=== PATIENT | male | born 1950 | race Caucasian/White ===

== ENCOUNTER → 2018-03-28 | Outpatient (CLI) | payer MEDICARE | END | disposition home or self-care (01) | LOC: RADMRIMAIN 08:11 | PROVIDERS: ATTEND Family Medicine | DX: Z53.9 Procedure and treatment not carried out, unspecified reason (principal) ==

== ENCOUNTER → 2018-03-30 | Outpatient (CLI) | payer MEDICARE | END | disposition home or self-care (01) | LOC: LABWHC1 16:32 | PROVIDERS: ATTEND Family Medicine | DX: Z13.9 Encounter for screening, unspecified (principal) | CPT/HCPCS: 36415; 82565 ==

== ENCOUNTER → 2018-04-02 | Outpatient (CLI) | payer MEDICARE ==
--- NOTE | 2018-04-02 19:09 | MR ---
EXAMINATION TYPE: MR cervical spine wo/w con DATE OF EXAM: 04/02/2018 COMPARISON: [id number] HISTORY: Neck pain TECHNIQUE: Multiplanar, multisequence images of the cervical spine were acquired utilizing 10 mL intravenous Baltazar avist gadolinium contrast. Diffusion weighted imaging was performed. FINDINGS: The cervical spine vertebral bodies maintain normal vertebral body height. There is mild re trolisthesis of C4 and C5 and to lesser degree of C5 on C6. No anterolisthesis. Bone marrow signal is diffusely patchy without focal conspicuous T1 hypointense/T2 hypointense lesion. There is slight enh ancement in the bone marrow at C6 and C7. In comparison to the prior exam of 2014 this patchy bone ma rrow signal appears similar. C2-C3: There is facet arthropathy and uncovertebral hypertrophy resulting in mild left-sided spinal c anal stenosis. Broad-based disc bulge is seen without right neuroforaminal narrowing or central canal stenosis. C3-C4: Uncovertebral hypertrophy and facet arthropathy are seen resulting in moderate left neural for aminal narrowing. Spinal canal and neural foramen are patent despite a small central disc osteophyte complex. C4-C5: There is a small right paracentral disc herniation as seen on the prior exam effacing the vent ral subarachnoid space and creating mild compression upon the cervical cord without abnormal spinal c ord signal. There is mild resultant spinal canal stenosis. Uncovertebral hypertrophy and facet arthro carlos result in mild left neural foraminal narrowing. Right neuroforamen is patent. Findings are pham lar in degree to the prior exam. C5-C6: A broad-based disc bulge, uncovertebral hypertrophy and facet arthropathy creates moderate lef t and mild right neural foraminal narrowing. There is narrowing of the ventral subarachnoid space wit hout spinal canal stenosis. C6-C7: Right eccentric broad-based disc bulge extends into the neural foramen and in combination with facet arthropathy and ligamentum flavum buckling create moderate right neural foraminal narrowing. L eft neural foramen and spinal canal are patent. C7-T1: No significant disc disease, spinal canal stenosis or neural foraminal narrowing. No suspicious epidural fluid collection or abnormal focal enhancement. Visualized portions of posteri or fossa are grossly unremarkable. IMPRESSION: 1. Similar right paracentral disc herniation at C4-C5 creating mild spinal canal stenosis in comparis on to the exam of 2014. 2. Right eccentric broad-based disc bulge extending into the neural foramen at C6-C7 creates moderate right neural foraminal narrowing. 3. Multilevel moderate degenerative disc disease of the cervical spine creating variable degrees of n eural foraminal narrowing as described above. 4. Overall patchy bone marrow signal with decreased intensity more focally within the C6 and C7 verte bral bodies demonstrating minimal enhancement. Findings are similar to the exam of 2014 without focal suspicious lesion. Correlate with CBC to assess for anemia or myeloproliferative disorders. If there is further concern nuclear medicine bone scan could be performed to evaluate for focal radiotracer u ptake. 5. Mild retrolisthesis of C4 and C5 and C5 on C6, likely on a degenerative basis.
== END | disposition home or self-care (01) ==
LOC: RADMRIMAIN 14:50
PROVIDERS: ATTEND Family Medicine
DX: M48.02 Spinal stenosis, cervical region (principal); M99.71 Connective tissue and disc stenosis of intervertebral foramina of cervical region; M50.221 Other cervical disc displacement at C4-C5 level; M50.30 Other cervical disc degeneration, unspecified cervical region; M43.12 Spondylolisthesis, cervical region
CPT/HCPCS: 72156; A9581

== ENCOUNTER 2018-04-21 17:36 | Emergency (ER) | payer MEDICARE ==
[2018-04-21 17:51] VITALS: BP 116/66; PULSE 83; RESP 16; TEMP 98.4
--- NOTE | 2018-04-21 18:08 | ED ---
Lower Extremity Injury HPI - General Source: patient, family, RN notes reviewed Mode of arrival: wheelchair Limitations: no limitations <Kelly Valentino - Last Filed: 04/21/18 18:33> <Otis Pérez - Last Filed: 04/25/18 01:13> - General Chief Complaint: Extremity Injury, Lower Stated Complaint: fell getting off boat Time Seen by Provider: 04/21/18 17:53 - History of Present Illness Initial Comments: This is a 67-year-old male who presents to the emergency department with chief complaint of right buttock injury. Patient states that he was in a fishing tournament today. He states that when he went to dock his boat, he stepped off and had 1 foot on the dock and 1 foot on his boat. He states that his foot on the dock slipped and he ended up having a "splits and fall." Patient states that he then fell backward and landed on his right buttock. Patient complains of pain in the right buttock. He denies any hip pain. He states that pain is made worse with walking and flexion of the right knee. Denies any other injuries or trauma. Denies head, neck or back pain. He states that he is unable to ambulate on the right leg due to pain. Denies recent fevers or chills , chest pain shortness of breath, abdominal pain, nausea or vomiting. (Kelly Valentino) - Related Data Previous Rx's Medication Instructions Recorded Ibuprofen 600 mg PO Q6HR #20 tablet 04/21/18 Allergies Allergy/AdvReac Type Severity Reaction Status Date / Time adhesive Allergy Rash/Hives Verified 04/21/18 17:52 Review of Systems ROS Other: All systems not noted in ROS Statement are negative. <Kelly Valentino - Last Filed: 04/21/18 18:33> ROS Other: All systems not noted in ROS Statement are negative. <Otis Pérez - Last Filed: 04/25/18 01:13> ROS Statement: Those systems with pertinent positive or pertinent negative responses have been documented in the HPI. Past Medical History Past Medical History: Diabetes Mellitus, Hyperlipidemia, Hypertension Additional Past Medical History / Comment(s): hearing impaired History of Any Multi-Drug Resistant Organisms: None Reported Past Surgical History: Back Surgery, Hernia Repair, Orthopedic Surgery Past Psychological History: No Psychological Hx Reported Smoking Status: Never smoker Past Alcohol Use History: Occasional Past Drug Use History: None Reported <Randell Valentinogabi Dooley - Last Filed: 04/21/18 18:33> General Exam Limitations: no limitations <Kelly Valentino - Last Filed: 04/21/18 18:33> <Otis Pérez - Last Filed: 04/25/18 01:13> - General Exam Comments Initial Comments: General: Awake and alert, well-developed; in no apparent distress. Patient went completely an ED stretcher with his at bedside. HEENT: Head atraumatic, normocephalic. Pupils are equal, round and reactive to light. Extraocular movements intact. Oropharynx moist without erythema or exudate. Neck: Supple. Normal ROM. Cardiovascular: Regular rate and rhythm. No murmurs, rubs or gallops. Chest symmetrical. Respiratory: Lungs clear to auscultation bilaterally. No wheezes, rales or rhonchi. Normal respiratory effort with no use of accessory muscles. Musculoskeletal: Normal range of motion of the right hip. No tenderness of the greater trochanter or superior iliac crest. There is tenderness over the ischial tuberosity on the right side. Patient has pain and difficulty flexing the right knee. Sensation is intact. Pedal pulses are 2+ equal and palpable bilaterally. Skin: [place], warm and dry without rashes or lesions. Neurological: Alert and oriented x3. CN II-XII grossly intact. Speech is fluent and answers are appropriate. No focal neuro deficits. Psychiatric: Normal mood and affect. No overt signs of depression or anxiety noted. (Kelly Valentino) Course <Kelly Valentino - Last Filed: 04/21/18 18:33> <Otis Pérez - Last Filed: 04/25/18 01:13> Vital Signs 04/21/18 17:46 Temperature 98.4 F Pulse Rate 83 Respiratory 16 Rate Blood Pressure 116/66 O2 Sat by Pulse 96 Oximetry - Reevaluation(s) Reevaluation #1: 04/21/18 18:44 PA supervision: I did personally do a states evaluation the patient did discuss the findings with him. She'll be discharged on appropriate anti-inflammatories he is advised to follow-up with his doctor and return when necessary we did discuss the x-ray findings. (Otis Pérez) Medical Decision Making - Radiology Data Radiology results: report reviewed, image reviewed <Kelly Valentino - Last Filed: 04/21/18 18:33> <Otis Pérez - Last Filed: 04/25/18 01:13> - Medical Decision Making This is a 67-year-old male who presents to the emergency department with chief complaint of right buttock injury. Patient was docking his boat earlier today and had 1 foot on the boat and the other on the dock. The foot on the dock slipped and patient ended up doing the splits and following backwards onto his right buttock. Patient does have normal range of motion of the right hip. There is tenderness over the ischial tuberosity on the right side. Patient has difficulty and pain is elicited with flexion of the right knee. Patient has been resting comfortably on the ED stretcher. X-ray of the pelvis was obtained and revealed no acute fractures. It did demonstrate sclerosis at the pubis. Findings were discussed with patient and his at bedside. Recommended following up with his primary care provider regarding these findings. Patient is in agreement. He will be started on a short course of anti-inflammatories to help with muscle strain. Recommended rest and ice as well. Patient is in agreement with plan and voices understanding. He is in no acute distress at this time and will be discharged home. All questions answered. (Kelly Valentino) - Radiology Data X-ray AP pelvis impression: No acute fracture. Sclerosis involving the pubic symphysis greater on the right is a nonspecific finding. Metastatic disease would be the differential diagnosis correlate clinically. As read by Dr. Tomlinson. (Kelly Valentino) Disposition Is patient prescribed a controlled substance at d/c from ED?: No Time of Disposition: 18:37 <Kelly Valentino - Last Filed: 04/21/18 18:33> Is patient prescribed a controlled substance at d/c from ED?: No <Otis Pérez - Last Filed: 04/25/18 01:13> Clinical Impression: Hamstring strain Disposition: HOME SELF-CARE Condition: Good Instructions: Hamstring Injury (ED) Additional Instructions: Please take medications as prescribed. Please follow up with your primary care provider to address x-ray findings that we discussed. Please follow up with primary care provider within 1-2 days. Return to emergency department if symptoms should worsen or any concerns arise. Prescriptions: Ibuprofen 600 mg PO Q6HR #20 tablet Referrals: Tin Rivas DO [Primary Care Provider] - 1-2 days
--- NOTE | 2018-04-21 18:26 | XR ---
EXAMINATION TYPE: XR pelvis AP view DATE OF EXAM: 04/21/2018 COMPARISON: NONE HISTORY: Pain The osseous structures are intact and the joint spaces are preserved. No acute fracture is seen. Vi sualized bowel gas pattern is nonspecific. Sclerosis of the pubic symphysis noted. Calcifications in the pelvis seen. IMPRESSION: 1. No acute fracture. Sclerosis involving the pubic symphysis greater on the right is a nonspecific f inding. Metastatic disease would be the differential diagnosis correlate clinically.
== END 2018-04-21 18:48 | disposition home or self-care (01) ==
LOC: EC 17:36
DX: S76.911A Strain of unspecified muscles, fascia and tendons at thigh level, right thigh, initial encounter (principal); Z91.048 Other nonmedicinal substance allergy status; W01.0XXA Fall on same level from slipping, tripping and stumbling without subsequent striking against object, initial encounter; Y92.62 Dock or shipyard as the place of occurrence of the external cause; Y93.89 Activity, other specified
CPT/HCPCS: 72170; 99283

== ENCOUNTER → 2018-05-15 | Outpatient (CLI) | payer MEDICARE ==
--- NOTE | 2018-05-15 11:52 | CT ---
EXAMINATION TYPE: CT abdomen pelvis wo/w con DATE OF EXAM: 05/15/2018 COMPARISON: NONE HISTORY: Low back pain. CT DLP: 2639 mGycm Automated exposure control for dose reduction was used. CONTRAST: CT scan of the abdomen pelvis is performed without and with IV Contrast, patient injected with 100 mL of Isovue 300. FINDINGS- LUNG BASES- No significant abnormality is appreciated. The heart is enlarged. LIVER/GB- No gross abnormality is appreciated. PANCREAS- No gross abnormality is seen. SPLEEN-splenic granuloma noted.. ADRENALS- No gross abnormality is seen. KIDNEYS/BLADDER- no hydronephrosis nephrolithiasis or renal mass. BOWEL-nonspecific bowel gas pattern. Large hiatal hernia.. LYMPH NODES- No greater than 1cm abdominal or pelvic lymph nodes are appreciated. OSSEOUS STRUCTURES-multilevel degenerative change. Endplate deformity of L1 appears chronic. There is an anterolisthesis of L4 on L5 with significant facet arthropathy. Multilevel facet arthropathy seen . Disc bulging at L4-L5 noted. Sclerosis involving the pars of L4 suggests the stress defects. Disc bulging and facet arthropathy contribute to bilateral foraminal encroachment and probable canal sten osis. There is sclerosis involving the right pubic symphysis which may been the basis of osteitis pubis con densans. Correlate clinically to exclude history of malignancy. Is arthropathy of the joints with a small cystic geode near the inferior margin of the left fibula. OTHER- atherosclerotic change of the aorta with no evidence of aneurysm. Tiny periumbilical hernia n oted. IMPRESSION- 1. Multilevel degenerative disc disease with grade 1 anterolisthesis L4 on L5 and multilevel facet ar thropathy. Exam is nondiagnostic for assessment of osteomyelitis or discitis. MRI is recommended if t here is concern for osteomyelitis or discitis. 2. Nonspecific sclerosis involving the right pubic symphysis may be post arthritic. Correlate clinica lly. 3. Large hiatal hernia. 4. Cardiomegaly.
== END | disposition home or self-care (01) ==
LOC: RADCTMAIN 09:15
PROVIDERS: ATTEND Family Medicine
DX: K44.9 Diaphragmatic hernia without obstruction or gangrene (principal)
CPT/HCPCS: 82565; 84520; 74178; 36415; Q9967

== ENCOUNTER → 2018-06-27 | Outpatient (CLI) | payer MEDICARE ==
--- NOTE | 2018-06-27 11:57 | XR ---
EXAMINATION TYPE: XR chest 2V DATE OF EXAM: 06/27/2018 COMPARISON: NONE TECHNIQUE: PA and lateral views submitted. HISTORY: Osteomyelitis FINDINGS: The lungs are clear and there is no pneumothorax, pleural effusion, or focal pneumonia. Nodular pro minence involving the right upper mediastinum likely related to a right-sided aortic arch. Hiatal her sid also suggested. Hypertrophic and degenerative change of the spine. IMPRESSION: 1. No acute process. Correlate for right-sided aortic arch. This could be confirmed with CT scan of t he chest. 2. Correlate for hiatal hernia.
== END | disposition home or self-care (01) ==
LOC: RADXRMAIN 11:36
PROVIDERS: ATTEND Family Medicine
DX: M86.9 Osteomyelitis, unspecified (principal)
CPT/HCPCS: 71046

== ENCOUNTER → 2018-11-22 | Outpatient (CLI) | payer MEDICARE ==
--- NOTE | 2018-11-22 13:51 | CT ---
EXAMINATION TYPE: CT brain wo con DATE OF EXAM: 11/22/2018 COMPARISON: None HISTORY: fall, trauma and pain CT DLP: 1169 mGycm Automated exposure control for dose reduction was used. Helical imaging through the brain FINDINGS: Cerebellar calcifications are symmetric and benign in appearance. There is no hemorrhage or hydroceph alus. Basal ganglia calcifications also noted. Calvarium is intact. Paranasal sinuses and mastoid air cells are well aerated. Small cephalohematoma noted at the posterior parietal location extending to the occipital region. There are cerebral vascular calcifications. Orbits show symmetric appearance. S clerotic focus within the frontal calvarium shows a nonaggressive appearance, there is no cortical de struction, abnormality measures 16 x 23 x 8 mm IMPRESSION: NO ACUTE ABNORMALITIES EVIDENT. SCLEROTIC FOCUS FRONTAL CALVARIUM IS NONAGGRESSIVE IN APPEARANCE, CON CERTIFIED FLEX ENDOSCOPE REPROCESSOR BONE SCAN. CEPHALOHEMATOMA.
== END | disposition home or self-care (01) ==
LOC: RADCTMAIN 13:00
PROVIDERS: ATTEND Physician Assistant
DX: S00.93XA Contusion of unspecified part of head, initial encounter (principal); G37.9 Demyelinating disease of central nervous system, unspecified
CPT/HCPCS: 70450

== ENCOUNTER → 2018-12-04 | Outpatient (CLI) | payer MEDICARE ==
--- NOTE | 2018-12-04 15:21 | NM ---
EXAMINATION TYPE: NM bone/joint limited DATE OF EXAM: 12/04/2018 COMPARISON: CT brain 11/22/2017 HISTORY: Abnormal PET/CT TECHNIQUE: After the intravenous administration of 25.1 mCi Tc 99m MDP. Images acquired 3 hours pos t injection. Multiple views of skull are submitted. There is no abnormal uptake within the visualized osseous structures to suggest acute process. Mild u ptake in the shoulders compatible with arthropathy. IMPRESSION: No acute osseous abnormality. No abnormal uptake seen within the skull to suggest metasta sis.
== END | disposition home or self-care (01) ==
LOC: RADNMMAIN 09:46
PROVIDERS: ATTEND Family Medicine
DX: R93.0 Abnormal findings on diagnostic imaging of skull and head, not elsewhere classified (principal)
CPT/HCPCS: 78300; A9503

== ENCOUNTER → 2021-02-25 | Outpatient (CLI) | payer MEDICARE ==
--- NOTE | 2021-02-25 13:43 | CONS ---
CONSULTATION DATE OF SERVICE: 02/25/2021 This 70-year-old gentleman has been evaluated in the Sleep Center for obstructive sleep apnea-hypopnea syndrome. HISTORY OF PRESENT ILLNESS/SLEEP-WAKE EVALUATION: Patient has history of obstructive sleep apnea since 2006 and since that time he is on treatment with BiPAP. He continued to use equipment every night but developed multiple awakenings from sleep and snoring while using his equipment. His present sleep schedule from 10:30 p.m. until 7 a.m. Usually no problems with falling asleep. No TV in bedroom. He sleeps in the stomach position. Presently wearing BiPAP, he wakes up from sleep up to 5 times with several episodes of nocturia. He tosses and turns. He has dry mouth, restless leg symptoms, positive history of sleep talking. [place] Sleepiness Scale is today is significantly increased to 14. PAST MEDICAL HISTORY: Positive for hypertension, diabetes mellitus, hyperlipidemia. PAST SURGICAL HISTORY: Right shoulder repair 2009, right elbow surgery 2017, left elbow surgery in 2007, cysts removed from spinal cord 2007, defect correction in 194. MEDICATIONS: Metformin 1000 mg twice a day, AndroGel 40.5 mg once a day, lisinopril 10 mg once a day, Lantus 25 units at bedtime, Trulicity 0.75 mg once a week, tamsulosin 0.4 mg once daily, lovastatin 40 mg once daily, aspirin 81 mg once daily, calcium, iron, magnesium supplements. REVIEW OF SYSTEMS: Multiple awakenings from sleep, sleepiness during the day. FAMILY HISTORY: Heart problems, angina, stroke. PHYSICAL EXAMINATION: GENERAL: gentleman without distress. VITAL SIGNS: BP 141/81, HR 65, RR 15, height 5 feet 10 inches, weight 183.8, BMI 26.2, temperature 98.7, oxygen saturation at room air 95%. HEENT: PERRLA, EOMI. Oropharynx low position of soft palate. NECK: Supple, no JVD. Thyroid is not palpable. LUNGS: Clear to percussion and to auscultation. Good air exchange. No wheezing or rhonchi. HEART: S1, S2 regular. No murmurs, gallops, or rubs. ABDOMEN: Soft and nontender. Bowel sounds are present. No organomegaly appreciated. EXTREMITIES: No clubbing or cyanosis. TELEPHOTO ENGINEER: Awake, alert, and oriented X3. Cranial nerves 2 to 7 intact. There is no fasciculation or atrophy. noted. No focal deficits observed. IMPRESSION: 1. History of obstructive sleep apnea for 20 years. By the record of previous dictation of another physician, he had obstructive sleep apnea with apnea-hypopnea index 23 events per hour at that time. The patient is on treatment with BiPAP. Continue to use BiPAP equipment every night, but has multiple awakenings from sleep, sleepiness during the day and checking his BiPAP unit indicated good compliance with treatment, 100% of the time. BiPAP pressure 12/6 cm of water. 2. Hypertension. 3. Diabetes mellitus. 4. Hypothyroidism. 5. Hyperlipidemia. 6. History of surgery after 1948. 7. Status post cyst removed from spinal cord in 2007. 8. Status post hernia repair in 1979. 9. Status post right shoulder repair, 2009. 10.Status post right elbow surgery 2017. 11.Status post left elbow and wrist 2019. PLAN: 1. CPAP if necessary BiPAP titration for re-evaluation of effective pressure at the present time for correction of respiratory abnormalities during sleep. 2. Sleep hygiene with regular time in bed for 7-1/2 to 8 hours. 3. Precautions related to driving. No driving if feeling any sleepiness. 4. Prescription for new PAP therapy unit after titration with all necessary supplies. Thank you very much for allowing me to participate in management of your patient. Sincerely, Brayden Finn MD, PhD, FAASM Diplomat of [employer] Footwear Sales Leader of [facility] [place] MMODL / FADYN: [id number] /
== END ==
LOC: SLEEP 11:24
PROVIDERS: ATTEND Internal Medicine
DX: G47.33 Obstructive sleep apnea (adult) (pediatric) (principal); I10 Essential (primary) hypertension; E11.9 Type 2 diabetes mellitus without complications; E03.9 Hypothyroidism, unspecified; E78.5 Hyperlipidemia, unspecified; Z79.4 Long term (current) use of insulin; Z79.899 Other long term (current) drug therapy; Z98.890 Other specified postprocedural states; Z99.89 Dependence on other enabling machines and devices
CPT/HCPCS: 99211

== ENCOUNTER → 2021-07-28 | Outpatient (CLI) | payer MEDICARE ==
--- NOTE | 2021-07-28 11:17 | SFUN ---
SLEEP CENTER FOLLOW UP NOTE DATE OF SERVICE: 07/28/2021 This 70-year-old gentleman has been followed in Sleep Center for treatment of obstructive sleep apnea-hypopnea syndrome. Recently the patient had CPAP titration. After that he received a new CPAP unit and today is his first visit after he was started on treatment with the new CPAP machine. The patient likes his CPAP unit, does not have any problems with usage of equipment. [place] Sleepiness Scale today is 4, which is totally normal. I checked his CPAP unit. Range of the pressure is 7-10, average 9.5 cm of water, usage /30 nights, and /30 nights for more than 4 hours, average 7.8 hours per night. Leak is 25 L/minute, which is borderline. Apnea-hypopnea index is 1.4, which is in normal range. I discussed with the patient details about the position of the machine during the night, results of his sleep study, necessity to make the water chamber dry after usage in the morning. MEDICATIONS: 1. Metformin 1000 mg twice a day. 2. AndroGel 40.5 mg once a day. 3. Lisinopril 10 mg once a day. 4. Lantus 25 units at bedtime. 5. Trulicity 0.75 mg once a week. 6. Tamsulosin 0.4 mg once a day. 7. Lovastatin 40 mg once a day. 8. Aspirin 81 mg once daily. 9. Calcium, iron and magnesium supplements. PHYSICAL EXAMINATION: GENERAL APPEARANCE: Pleasant patient in no distress. VITAL SIGNS: BP 142/80, HR 76, RR 14, weight 177, temperature 97.6, oxygen saturation at room air 95%. HEENT: PERRLA, EOMI, evaluation of oropharynx showed tongue protrudes midline. Low position of soft palate. NECK: Supple, no JVD. Thyroid is not palpable. LUNGS: Clear to percussion and to auscultation. Good air exchange. No wheezing or rhonchi. HEART: S1, S2 regular. No murmurs, gallops, or rubs. ABDOMEN: Soft and nontender. Bowel sounds are present. No organomegaly appreciated. EXTREMITIES: No clubbing or cyanosis. RFID MANAGER: Awake, alert, and oriented X3. Cranial nerves 2 to 7 intact. There is no fasciculation or atrophy. noted. No focal deficits observed. IMPRESSION: 1. Obstructive sleep apnea-hypopnea syndrome, under full control with CPAP. Patient demonstrated great compliance with treatment, benefitting from treatment. 2. Hypertension. 3. Diabetes mellitus. 4. Hypothyroidism. 5. Hyperlipidemia. 6. Status post surgery after in 1949. 7. Status post cyst removed from spinal cord in 2007. 8. Status post hernia repair in 1979. 9. Status post right shoulder repair in 2009. 10.Status post right elbow surgery in 2017. 11.Status post left elbow and wrist surgery in 2019. PLAN: 1. Change air filter. It looks like it needs to be replaced. 2. Patient will continue to use PAP equipment every night for the whole night. 3. Sleep hygiene with regular time in bed for at least 7-1/2 to 8 hours. 4. Precautions related to driving. No driving if feeling sleepiness. 5. I will maintain all necessary prescription for PAP supplies including mask, tube, filters. 6. Watching weight. 7. Follow-up visit in 6 months or earlier if patient has any problems. Thank you very much for allowing me to participate in the management of your patient. Sincerely, Brayden Finn MD, PhD, FAASM Diplomat of [employer] Sleep Medicine Board of [employer] Licensed Surveyor of [facility] [place] MMODL / IJN: [id number] /
== END | disposition home or self-care (01) ==
LOC: SLEEP 09:59
PROVIDERS: ATTEND Internal Medicine
DX: G47.33 Obstructive sleep apnea (adult) (pediatric) (principal); I10 Essential (primary) hypertension; E11.9 Type 2 diabetes mellitus without complications; E03.9 Hypothyroidism, unspecified; E78.5 Hyperlipidemia, unspecified; Z98.890 Other specified postprocedural states

== ENCOUNTER → 2021-08-27 | Outpatient (CLI) | payer MEDICARE ==
--- NOTE | 2021-08-27 08:27 | US ---
EXAMINATION TYPE: US duplex aorta DATE OF EXAM: 08/27/2021 COMPARISON: CT CLINICAL HISTORY: Z13.6 screening for cardiovascular disorders. EXAM MEASUREMENTS: Abdominal Aorta: Proximal: 1.7cm by 1.6 cm Mid: 1.7 Distal: 1.1 by 1.4 centimeters Bifurcation: Right: 0.9cm Left: 1.3cm Atherosclerotic changes. IMPRESSION: No Ultrasound evidence for greater than 3.0 cm AAA.
== END | disposition home or self-care (01) ==
LOC: RADUSWWP 07:46
PROVIDERS: ATTEND Family Medicine
DX: Z13.6 Encounter for screening for cardiovascular disorders (principal)
CPT/HCPCS: 93979

== ENCOUNTER → 2022-01-26 | Outpatient (CLI) | payer MEDICARE ==
--- NOTE | 2022-01-26 11:23 | SFUN ---
SLEEP CENTER FOLLOW UP NOTE DATE OF SERVICE: 01/26/2022 This 71-year-old gentleman has been followed in Sleep Center for treatment of obstructive sleep apnea-hypopnea syndrome. The patient continues to use his CPAP equipment every night for the whole night and is getting his CPAP supplies on time. [place] Sleepiness Scale today is slightly increased at 11. I checked his CPAP unit. Range of the pressure is 7 to 10, average 9.6 cm of water. Usage is 30/30 nights for more than 4 hours, average 7.9 hours per night. Leak is 18 L/minute, which is borderline. Apnea-hypopnea index is 1.5 per hour, which is normal. MEDICATIONS: 1. Metformin 1000 mg twice a day. 2. Lisinopril 10 mg once a day. 3. Polyvitamins. 4. Lantus. 5. Calcium supplement. 6. AndroGel. 7. Lovastatin 40 mg once a day. 8. Aspirin 81 mg once a day. PHYSICAL EXAMINATION: GENERAL: Pleasant patient in no distress. VITAL SIGNS: BP 119/66, HR 72, RR 18, weight 187 pounds. The patient's weight increased by 10 pounds. Temperature 97.0, oxygen saturation at room air 96%. HEENT: PERRLA, EOMI, evaluation of oropharynx showed tongue protrudes midline. Low position of soft palate. NECK: Supple, no JVD. Thyroid is not palpable. LUNGS: Clear to percussion and to auscultation. Good air exchange. No wheezing or rhonchi. HEART: S1, S2 regular. No murmurs, gallops, or rubs. ABDOMEN: Soft and nontender. Bowel sounds are present. No organomegaly appreciated. EXTREMITIES: No clubbing or cyanosis. TOOLING SPECIALIST: Awake, alert, and oriented X3. Cranial nerves 2 to 7 intact. There is no fasciculation or atrophy. noted. No focal deficits observed. IMPRESSION: 1. Obstructive sleep apnea-hypopnea syndrome. Patient demonstrated 100% compliance with treatment. Normal respiration on CPAP. 2. Diabetes mellitus. 3. Hypertension. 4. History of hypothyroidism. 5. Hyperlipidemia. 6. Status post surgery after in 1949. 7. Status post cyst removed from spinal cord in 2007. 8. Status post hernia repair in 1979. 9. Status post right shoulder repair in 2009. 10.Status post right elbow surgery in 2018. 11.Status post left elbow and wrist surgery in 2020. PLAN: 1. Patient will continue to use PAP equipment every night for the whole night. 2. Sleep hygiene with regular time in bed for at least 7-1/2 to 8 hours. 3. Precautions related to driving. No driving if feeling sleepiness. 4. I will maintain all necessary prescription for PAP supplies including mask, tube, filters. 5. Watching weight. 6. Follow-up visit in 6 months or earlier if patient has any problems. Thank you very much for allowing me to participate in the management of your patient. Sincerely, Brayden Finn MD, PhD, FAASM Diplomat of [place] [employer] Sleep Medicine Board of [place] [employer] [facility] [place] MMPACO / FADYN: [id number] /
== END | disposition home or self-care (01) ==
LOC: SLEEP 10:09
PROVIDERS: ATTEND Internal Medicine
DX: G47.33 Obstructive sleep apnea (adult) (pediatric) (principal); E11.9 Type 2 diabetes mellitus without complications; I10 Essential (primary) hypertension; E78.5 Hyperlipidemia, unspecified; Z86.39 Personal history of other endocrine, nutritional and metabolic disease; Z98.890 Other specified postprocedural states

== ENCOUNTER → 2022-07-28 | Outpatient (CLI) | payer MEDICARE ==
--- NOTE | 2022-07-28 10:37 | P.PN ---
Subjective DATE: 07/28/2022 FOLLOW UP VISIT. Patient with obstructive sleep apnea hypopnea syndrome return to sleep center for follow-up visit. Information from previous visit have been reviewed. Patient is using PAP equipment every night for the whole night, getting PAP supplies in time. The patient does not have significant problems with the mask, PAP unit and humidification. [place] sleepiness scale is 2. I checked PAP unit. PAP unit pressure daily 7-10, average 9.7 cm H2O. Usage is 100 % for more then 4 hours, average 8 hours per night. Leak is 28 l/m, which is in acceptable range. Apnea Hypopnea Index is 1.3, which is normal. MEDICATIONS:1. Metformin 1000 mg twice a day 2. Insulin 3. Lisinopril 10 mg once a day 4. Lovastatin 40 mg once a day 5. Aspirin 81 mg once a day 6. AndroGel 7. Calcium supplement During physical exam: GENERAL: A pleasant patient without any distress. VITAL SIGNS: BP 138/74, HR 63, RR 16 , weight 180.0, patient lost 7 pounds since previous visit, temperature 97.0, oxygen saturation at room air 97 % . HEENT: PERRLA, EOMI.low position of soft palate. NECK: Supple. No JVD. LUNGS: Clear to percussion and to auscultation. Good air exchange. No wheezing or rhonchi. HEART: S1, S2 regular. ABDOMEN: Soft and nontender.[] EXTREMITIES: No clubbing or cyanosis. TAP AND DIE MAKER TECHNICIAN: Awake, alert, and oriented x3. No focal deficit. Impressions: 1. Obstructive sleep apnea-hypopnea syndrome. Patient demonstrated great compliance with treatment, benefiting from treatment. 2. Hypertension. 3. Diabetes mellitus. According to patient blood sugar today in the morning 118 mg/mL. 4. History of hypothyroidism. 5. Hyperlipidemia. 6. Status post cyst removed from spinal cord in 2007. 7. Status post a right shoulder repair in 2009. 8. Status post right elbow surgery in 2017. 9. Status post left elbow and wrist surgery in 2019. Plan: 1. Continue using PAP equipment every night for the whole night. 2. To change air filter at least 1-2 times per month. 3. PAP unit should stay lower then position of the head. 4. Advised patient to remove all remaining water from humidifier canister daily and make it dry after each usage. Refill canister with fresh distilled water before each usage. 5. Sleep hygiene with regular time in bed for at least 8 hours. 6. Precautions related to driving. No driving if feel any sleepiness. 7. I will maintain prescription for PAP supplies including mask, tube, filters. 8. Follow up visit in 6 months or earlier if patient has any problems. 9. Watching weight. Thank you very much for allowing me to participate in the management of your patient. Brayden Finn MD, PhD, FAASM. Diplomat of [place] [employer], Sleep Medicine Board by [place] [employer] Top Knitter [facility] [place]
== END | disposition home or self-care (01) ==
LOC: SLEEP 10:03
PROVIDERS: ATTEND Internal Medicine
DX: G47.39 Other sleep apnea (principal); I10 Essential (primary) hypertension; E11.9 Type 2 diabetes mellitus without complications; E03.9 Hypothyroidism, unspecified; E78.5 Hyperlipidemia, unspecified
CPT/HCPCS: 99212

== ENCOUNTER → 2023-04-26 | Outpatient (CLI) | payer MEDICARE ==
--- NOTE | 2023-04-26 12:28 | P.PN ---
Subjective DATE: 04/26/2023 FOLLOW UP VISIT. Patient with obstructive sleep apnea hypopnea syndrome return to sleep center for follow-up visit. Information from previous visit have been reviewed. Patient is using PAP equipment every night for the whole night, getting PAP supplies in time. The patient does not have significant problems with the mask, PAP unit and humidification. [place] sleepiness scale is increased to 12. I checked information from PAP unit. PAP unit pressure 7-10, average 9.8 cm H2O. Usage is 100 % for more then 4 hours, average 7.6 hours per night. Leak is 20 l/m, which is in acceptable range. Apnea Hypopnea Index is 1.5, which is normal. MEDICATIONS: None During physical exam: GENERAL: A pleasant patient without any distress. VITAL SIGNS: BP 134/78, HR 71, RR 16 , weight 176.2, temperature 98.0, oxygen saturation at room air 96 % . HEENT: PERRLA, EOMI.low position of soft palate, Mallapati 3 . NECK: Supple. No JVD. LUNGS: Clear to percussion and to auscultation. Good air exchange. No wheezing or rhonchi. HEART: S1, S2 regular. ABDOMEN: Soft and nontender.[] EXTREMITIES: No clubbing or cyanosis. FOOT DOCTOR: Awake, alert, and oriented x3. No focal deficit. Impressions: 1. Obstructive sleep apnea-hypopnea syndrome. Patient demonstrated great compliance with treatment, benefiting from treatment. 2. History of hypertension. 3. History of diabetes mellitus. 4. History of hypothyroidism. 5. Hyperlipidemia. 6. Status post right shoulder repair 2009. 7. Status post hernia repair. Plan: 1. Continue using PAP equipment every night for the whole night. 2. To change air filter at least 1-2 times per month. 3. PAP unit should stay lower then position of the head. 4. Advised patient to remove all remaining water from humidifier canister daily and make it dry after each usage. Refill canister with fresh distilled water before each usage. 5. Sleep hygiene with regular time in bed for at least 8 hours. 6. Precautions related to driving. No driving if feel any sleepiness. 7. I will maintain prescription for PAP supplies including mask, tube, filters. 8. Follow up visit in 6 months or earlier if patient has any problems. 9. Watching weight. Thank you very much for allowing me to participate in the management of your patient. Brayden Finn MD, PhD, FAASM. Diplomat of [place] [employer], Sleep Medicine Board by [place] [employer] Protection Officer of [facility] [place]
== END ==
LOC: 3 N SLEEP 11:16
PROVIDERS: ATTEND Internal Medicine
DX: G47.33 Obstructive sleep apnea (adult) (pediatric) (principal); E11.9 Type 2 diabetes mellitus without complications; E03.9 Hypothyroidism, unspecified; E78.5 Hyperlipidemia, unspecified; Z98.890 Other specified postprocedural states; I10 Essential (primary) hypertension; Z99.89 Dependence on other enabling machines and devices; Z96.611 Presence of right artificial shoulder joint; Z91.048 Other nonmedicinal substance allergy status
CPT/HCPCS: 99212

== ENCOUNTER → 2023-05-02 | Outpatient (CLI) | payer MEDICARE ==
--- NOTE | 2023-05-02 10:50 | BD ---
EXAMINATION TYPE: Axial Bone Density DATE OF EXAM: 05/02/2023 CLINICAL HISTORY: 72 years old Male. ICD-10 CODE: M85.80 DISRD OF BONE DENSITY Height: 68.5 Weight: 179 FRAX RISK QUESTIONS: Alcohol (3 or more units per day): no Family History (Parent hip fracture): Mother Glucocorticoids (More than 3mos): no History of Fracture in Adulthood: no Secondary Osteoporosis: 1. Type 1 Diabetes: no 2. Hyperthyroidism: no 3. Menopause before 45: na 4. Malnutrition: no 5. Chronic liver disease: no Rheumatoid Arthritis: no Current Tobacco Use: no RISK FACTORS HISTORY OF: Hip Fracture (Right/Left): no Spine Fracture: no History of Wrist Fracture: no Surgery to Spine/Hip(right/left)/Wrist (right/left): no Family History of Osteoporosis: no Active: yes Diet low in dairy products/other sources of calcium: yes Postmenopausal woman: na If Premenopausal, do you have irregular periods: na Take estrogen and/or progesterone medications: na How long: na Lost more than 2 inches in height since high school: yes Frequent falls: no Poor Health: no Hyperparathyroidism: no Adrenal Insufficiency: no MEDICATIONS: Prednisone or other steroids: no Thyroid Medications: no Osteoporosis Medications: no Additional Medications: Metformin, BP Meds, Cholesterol, Calcium, Vit D, Multi Vit Additional History: EXAM MEASUREMENTS: Bone mineral densitometry was performed using the [employer] System. Bone mineral density as measured about the Lumbar spine is: ----- L1-L4(G/cm2): 1.230 T Score Values are as follows: ----- L1: 0.3 ----- L2: -0.2 ----- L3: 1.0 ----- L4: 0.5 ----- L1-L4: 0.4 Z Score Values are as follows: ----- L1: 0.5 ----- L2: 0.0 ----- L3: 1.2 ----- L4: 0.6 ----- L1-L4: 0.6 Bone mineral density has: increased 4.7 % since study of: 07/18/2008 Bone mineral density about the R hip (g/cm2): 0.877 Bone mineral density about the L hip (g/cm2): 1.014 T Score values are as follows: -----R Neck: -1.4 -----L Neck: 0.1 -----R Total: -1.0 -----L Total: 0.0 Z Score values are as follows: -----R Neck: -0.4 -----L Neck: 1.2 -----R Total: -0.8 -----L Total: 0.2 Bone mineral density has: decreased 5.4 % since study of: 07/18/2008 FRAX%s: The graph provided illustrates a 13.2% chance for a major osteoporotic fx and a 7.2% chance f or the hips probability for fx in 10 years time. IMPRESSION: Osteopenia (T Score between -2.5 and -1). There is slightly increased risk of fracture and the patient may be considered for treatment. Re-Screen 2-5 years. NOTE: T-SCORE=SD OF THE YOUNG ADULT MEAN.
== END | disposition home or self-care (01) ==
LOC: RADBDWWP 07:12
PROVIDERS: ATTEND Family Medicine
DX: M85.89 Other specified disorders of bone density and structure, multiple sites (principal)
CPT/HCPCS: 77080

== ENCOUNTER → 2023-06-08 | Outpatient (CLI) | payer MEDICARE ==
[2023-06-08 14:26] LABS: HCT 38.2 % (39.6-50.0); HGB 12.1 d/dL (13.0-17.0); RBC 4.04 X 10*6/uL (4.40-5.60)
[2023-06-08 14:27] LABS: MCHC 31.7 d/dL (32.0-37.0); MCV 94.6 FL (80.0-97.0); Mean Platelet Volume 10.1 FL (9.5-12.2); NRBC Per 100 WBC 0 X 10*3/uL (0.00-0.01); Platelet Count 210 X 10*3/uL (140-440); RDW 13.6 % (11.5-14.5)
[2023-06-08 15:32] LABS: Prostate Specific Antigen 2.1 ng/mL (0.000-6.500)
== END | disposition home or self-care (01) ==
LOC: LABWHC1 06:58
PROVIDERS: ATTEND Internal Medicine Endocrinology, Diabetes & Metabolism
DX: M81.0 Age-related osteoporosis without current pathological fracture (principal); Q98.4 Klinefelter syndrome, unspecified
CPT/HCPCS: 36415; 82523; 84153; 84402; 84403; 85027

== ENCOUNTER → 2023-10-24 | Outpatient (CLI) | payer MEDICARE ==
[2023-10-24 11:53] LABS: ALT 9 U/L (10-49); AST 15 U/L (14-35); Albumin 4.4 g/dL (3.8-4.9); Albumin/Globulin Ratio 2.32 Ratio (1.60-3.17); Alkaline Phosphatase 65 U/L (41-126); BUN/Creat Ratio 25.67 Ratio (12.00-20.00); Blood Urea Nitrogen 23.1 mg/dL (9.0-27.0); Calcium 9.4 mg/dL (8.7-10.3); Chloride 102 mmol/L (96-109); Chol/HDL Ratio 4.97 Ratio; Globulin 1.9 g/dL (1.6-3.3); Glucose 106 mg/dL (70-110); LDL Cholesterol,Calculated 124.8 mg/dL (0.0-131.0); Potassium 4.7 mmol/L (3.5-5.5); Sodium 141 mmol/L (135-145); T4, Free (Free Thyroxine) 1.19 ng/dL (0.80-1.80); Total Bilirubin 0.4 mg/dL (0.3-1.2); Total Protein 6.3 g/dL (6.2-8.2)
[2023-10-24 15:49] LABS: HCT 39.7 % (39.6-50.0); HGB 13.1 g/dL (13.0-17.0); MCH 30.2 pg (27.0-32.0); MCV 91.5 FL (80.0-97.0); Mean Platelet Volume 9.6 FL (9.5-12.2); NRBC Per 100 WBC 0 X 10*3/uL (0.00-0.01); Platelet Count 225 X 10*3/uL (140-440); RBC 4.34 X 10*6/uL (4.40-5.60); RDW 13.9 % (11.5-14.5); WBC 4.81 X 10*3/uL (4.50-10.00)
[2023-11-02 07:20] LABS: Creatinine Urine Random 93 mg/dL (20-320); N-Telopeptides/Creat Ratio, Ur 30
== END | disposition home or self-care (01) ==
LOC: LABWHC1 07:06
PROVIDERS: ATTEND Internal Medicine Endocrinology, Diabetes & Metabolism
DX: M81.0 Age-related osteoporosis without current pathological fracture (principal); Q98.4 Klinefelter syndrome, unspecified
CPT/HCPCS: 36415; 80053; 80061; 82306; 82523; 83036; 84153; 84403; 84439; 84443; 85027

== ENCOUNTER → 2023-11-01 | Outpatient (CLI) | payer MEDICARE ==
--- NOTE | 2023-11-01 11:14 | P.PN ---
Subjective DATE: 11/01/2023 FOLLOW UP VISIT. Patient with obstructive sleep apnea hypopnea syndrome return to sleep center for follow-up visit. Information from previous visit have been reviewed. Patient is using PAP equipment every night for the whole night, getting PAP supplies in time. The patient does not have significant problems with the mask, PAP unit and humidification. [place] sleepiness scale is 6, which is normal. I checked information from PAP unit. PAP unit pressure 7-10, average 9.6 cm H2O. Usage is 100 % for more then 4 hours, average 8.2 hours per night. Leak is 23 l/m, which is in acceptable range. Apnea Hypopnea Index is 1.6, which is normal. MEDICATIONS:1. Metformin 1000 mg twice a day 2. Lisinopril 10 mg once a day 3. Lovastatin 40 mg once a day 4. Insulin 5. Trulicity 6. Jardiance During physical exam: GENERAL: A pleasant patient without any distress. VITAL SIGNS: BP 137/58, HR 82, RR 16, weight 182.6, temperature 98.4, oxygen saturation at room air 96 % . HEENT: PERRLA, EOMI.low position of soft palate, Mallapati 3 . NECK: Supple. No JVD. LUNGS: Clear to percussion and to auscultation. Good air exchange. No wheezing or rhonchi. HEART: S1, S2 regular. ABDOMEN: Soft and nontender.[] EXTREMITIES: No clubbing or cyanosis. POWDER GUARD: Awake, alert, and oriented x3. No focal deficit. Impressions: 1. Obstructive sleep apnea-hypopnea syndrome. Patient demonstrated great compliance with treatment, benefiting from treatment. 2. Diabetes mellitus. 3. Hypertension. 4. Hypothyroidism. 5. Hyperlipidemia. 6. Status post hernia repair. 7. Status post right shoulder repair 2009. Plan: 1. Continue using PAP equipment every night for the whole night. 2. To change air filter at least 1-2 times per month. 3. PAP unit should stay lower then position of the head. 4. Advised patient to remove all remaining water from humidifier canister daily and make it dry after each usage. Refill canister with fresh distilled water before each usage. 5. Sleep hygiene with regular time in bed for at least 8 hours. 6. Precautions related to driving. No driving if feel any sleepiness. 7. I will maintain prescription for PAP supplies including mask, tube, filters. 8. Follow up visit in 6 months or earlier if patient has any problems. 9. Watching weight. Thank you very much for allowing me to participate in the management of your patient. Brayden Finn MD, PhD, FAASM. Diplomat of [place] [employer], Sleep Medicine Board by [place] [employer] Technical Account Manager of [facility] [place]
== END ==
LOC: 3 N SLEEP 10:36
PROVIDERS: ATTEND Internal Medicine
DX: G47.33 Obstructive sleep apnea (adult) (pediatric) (principal); E11.9 Type 2 diabetes mellitus without complications; I10 Essential (primary) hypertension; E03.9 Hypothyroidism, unspecified; E78.5 Hyperlipidemia, unspecified; Z79.84 Long term (current) use of oral hypoglycemic drugs; Z79.899 Other long term (current) drug therapy; Z79.85 Long-term (current) use of injectable non-insulin antidiabetic drugs; Z79.4 Long term (current) use of insulin; Z98.890 Other specified postprocedural states; Z99.89 Dependence on other enabling machines and devices; Z91.048 Other nonmedicinal substance allergy status
CPT/HCPCS: 99212

== ENCOUNTER → 2024-06-28 | Outpatient (CLI) | payer MEDICARE | END | disposition home or self-care (01) | LOC: LABWHC1 11:10 | PROVIDERS: ATTEND Internal Medicine Interventional Cardiology | DX: E78.2 Mixed hyperlipidemia (principal) | CPT/HCPCS: 36415; 80061; 84450; 84460 ==

== ENCOUNTER → 2024-07-03 | Outpatient (CLI) | payer MEDICARE | LOC: 3 N SLEEP 09:00 | PROVIDERS: ATTEND Internal Medicine | CPT/HCPCS: 99212 ==

== ENCOUNTER → 2024-09-12 | Outpatient (CLI) | payer MEDICARE ==
[2024-09-12 10:42] LABS: HCT 38.2 % (39.6-50.0); HGB 12.6 g/dL (13.0-17.0); MCH 31.3 pg (27.0-32.0); MCV 94.8 FL (80.0-97.0); Mean Platelet Volume 10.7 FL (9.5-12.2); NRBC Per 100 WBC 0 X 10*3/uL (0.00-0.01); Platelet Count 217 X 10*3/uL (140-440); RBC 4.03 X 10*6/uL (4.40-5.60); RDW 14.1 % (11.5-14.5); WBC 4.91 X 10*3/uL (4.50-10.00)
[2024-09-12 11:10] LABS: Chol/HDL Ratio 2.63 Ratio; LDL Cholesterol,Calculated 61.4 mg/dL (0.0-131.0); VLDL Calculation 11.78 mg/dL (5.00-40.00)
[2024-09-12 11:11] LABS: ALT 11 U/L (10-49); AST 19 U/L (14-35); Albumin 4.5 g/dL (3.8-4.9); Albumin/Globulin Ratio 2.65 Ratio (1.60-3.17); Alkaline Phosphatase 54 U/L (41-126); Blood Urea Nitrogen 25.5 mg/dL (9.0-27.0); Calcium 9.3 mg/dL (8.7-10.3); Carbon Dioxide 28.3 mmol/L (21.6-31.8); Chloride 105 mmol/L (96-109); Globulin 1.7 g/dL (1.6-3.3); Glucose 119 mg/dL (70-110); Potassium 4.7 mmol/L (3.5-5.5); Prostate Specific Antigen 2.05 ng/mL (0.000-6.500); Sodium 143 mmol/L (135-145); T4, Free (Free Thyroxine) 1.07 ng/dL (0.80-1.80); Total Bilirubin 0.4 mg/dL (0.3-1.2); Total Protein 6.2 g/dL (6.2-8.2)
[2024-09-12 18:20] LABS: Microalbumin Creatinine Ratio <18 mg/g Cr (0-30); Urine Creatinine 67.3 mg/dL (39.0-259.0)
== END | disposition home or self-care (01) ==
LOC: LABWHC1 06:50
PROVIDERS: ATTEND Internal Medicine Endocrinology, Diabetes & Metabolism
DX: E11.65 Type 2 diabetes mellitus with hyperglycemia (principal)
CPT/HCPCS: 36415; 80053; 80061; 82043; 82306; 82570; 83036; 84153; 84402; 84403; 84439; 84443; 84480; 85027